=== PATIENT | female | born 1970 | race Caucasian/White ===

== ENCOUNTER → 2017-01-03 | Outpatient (CLI) | payer MEDICAID | LOC: CIMAGING 08:47 | PROVIDERS: ATTEND Physician Assistant | DX: K86.89 Other specified diseases of pancreas (principal); K76.0 Fatty (change of) liver, not elsewhere classified | CPT/HCPCS: 76700-PO ==

== ENCOUNTER → 2017-04-24 | Outpatient (CLI) | payer MEDICAID ==
[~2017-04-24] MED LIST: IOPAMIDOL (ISOVUE 370) 100 ML BTL IV ONE
== END ==
LOC: CIMAGING 09:20
PROVIDERS: ATTEND Internal Medicine Infectious Disease
DX: R07.9 Chest pain, unspecified (principal); R50.9 Fever, unspecified; R63.4 Abnormal weight loss
CPT/HCPCS: 71260-PO; Q9967

== ENCOUNTER → 2018-03-27 | Outpatient (CLI) | payer MEDICAID | LOC: FIMAGING 18:41 | PROVIDERS: ATTEND Psychiatry & Neurology Neurology | DX: R35.0 Frequency of micturition (principal); R35.8 Other polyuria; R53.1 Weakness ==